=== PATIENT | female | born 1990 | race Two or more races ===

== ENCOUNTER 2017-07-11 03:37 | Emergency (ER) | payer OTHER ==
[2017-07-11] MEDS ORDERED: IBUPROFEN 600 MG TABLET (FP) PO ONE ×2 (04:26→05:35)
[2017-07-11] MEDS ORDERED: AMOXICILLIN 500 MG CAPSULE (FP) PO ONE (04:26)
--- NOTE | 2017-07-11 04:26 | PDOC ---
History of Present Illness - General Stated Complaint: RIGHT EAR PAIN Time Seen by Provider: 07/11/17 04:14 History Source: Patient Exam Limitations: No Limitations - History of Present Illness Initial Comments: 07/11/17 06:05 26-year-old female presents to the ER complaining of right earache without fever , chills, nausea/vomiting, facial pains, sore throat, cough, chest pain, shortness of breath. Patient states she's been taken Tylenol without much relief. Patient denies any difficulty hearing. Past History - Past Medical History Allergies/Adverse Reactions: Allergies Allergy/AdvReac Type Severity Reaction Status Date / Time No Known Allergies Allergy Verified 07/11/17 05:03 Home Medications: Ambulatory Orders Amoxicillin - [Amoxicillin 500mg Capsule -] 500 mg PO TID #21 capsule 07/11/17 Review of Systems - Review of Systems Able to Perform ROS?: Yes Comments:: 07/11/17 04:23 CONSTITUTIONAL: Absent: fever, chills, diaphoresis, generalized weakness, malaise, loss of appetite HEENT: +Right ear pain Absent: rhinorrhea, nasal congestion, throat pain, throat swelling, difficulty swallowing, mouth swelling, eye pain, visual Changes CARDIOVASCULAR: Absent: chest pain, loss of consciousness, palpitations, irregular heart rate, peripheral edema RESPIRATORY: Absent: cough, shortness of breath, dyspnea with exertion, orthopnea, wheezing, stridor, hemoptysis GASTROINTESTINAL: Absent: abdominal pain, abdominal distension, nausea, vomiting, diarrhea, constipation, melena, hematochezia GENITOURINARY: Absent: dysuria, frequency, urgency, hesitancy, hematuria, flank pain, genital pain MUSCULOSKELETAL: Absent: myalgia, arthralgia, joint swelling SKIN: Absent: rash, itching, pallor Is the patient limited Maltese proficient: No *Physical Exam - Physical Exam Comments: 07/11/17 04:23 GENERAL: Well developed, well nourished. Awake and alert. No acute distress. HEENT: +B/L cerumen impaction +Right tm bulging/erythematous Normocephalic, atraumatic. PERRLA, EOMI. No conjunctival pallor. Sclera are non- icteric. Moist mucous membranes. Oropharynx is clear. NECK: Supple. Full ROM. No JVD. Carotid pulses 2+ and symmetric, without bruits. No thyromegaly. No lymphadenopathy. CARDIOVASCULAR: Regular rate and rhythm. No murmurs, rubs, or gallops. Distal pulses are 2+ and symmetric. PULMONARY: No evidence of respiratory distress. Lungs clear to auscultation bilaterally. No wheezing, rales or rhonchi. ABDOMINAL: Soft. Non-tender. Non-distended. No rebound or guarding. No organomegaly. Normoactive bowel sounds. MUSCULOSKELETAL Normal range of motion at all joints. No bony deformities or tenderness. No CVA tenderness. EXTREMITIES: No cyanosis. No clubbing. No edema. No calf tenderness. SKIN: Warm and dry. Normal capillary refill. No rashes. No jaundice. *DC/Admit/Observation/Transfer Diagnosis at time of Disposition: Impacted cerumen of right ear ROM (right otitis media) Qualifiers: Otitis media type: unspecified Qualified Code(s): H66.91 - Otitis media, unspecified, right ear - Discharge Dispostion Disposition: HOME Condition at time of disposition: Stable Admit: No - Prescriptions Prescriptions: Amoxicillin - [Amoxicillin 500mg Capsule -] 500 mg PO TID #21 capsule - Referrals Referrals: Bridger Vogt MD [Staff Physician] - - Patient Instructions Printed Discharge Instructions: DI for Cerumen Impaction, Middle Ear Infection Additional Instructions: Take Tylenol alternating with Motrin every 6 hours as needed for pain Prescription: Amoxicillin until completion Follow with your physician within 48 hours Return back to the emergency department for severe/persistent or worsening symptoms - Post Discharge Activity Progress Note - Progress Note Progress Note: B/L cerumen impaction 10cc warm NS irrigation per ear +successful cerumen disimpaction
[2017-07-11] MEDS ORDERED: AMOXICILLIN 500 MG CAPSULE (FP) ONE (05:34)
[2017-07-11 05:44] VITALS: BP 129/95; PULSE 95; TEMP 98.4; BMI 22.7
== END 2017-07-11 05:50 | disposition home or self-care (01) ==
LOC: JER 03:37
PROC: 3E1B78Z Irrigation of Ear using Irrigating Substance, Via Natural or Artificial Opening (ICD-10-PCS; principal; 2017-07-11)
PROC: 3E1B78Z Irrigation of Ear using Irrigating Substance, Via Natural or Artificial Opening (ICD-10-PCS; 2017-07-11)
DX: H66.91 Otitis media, unspecified, right ear (principal); H61.23 Impacted cerumen, bilateral
CPT/HCPCS: 69209-50; 99281-25